=== PATIENT | male | born 1980 | race Caucasian/White ===

== ENCOUNTER 2017-01-27 05:24 | Emergency (ER) | payer OTHER ==
[~2017-01-27 05:24] MED LIST: CEPH-264 PO; CYCL10TA2 PO; HYDR-79 PO; HYDR-971 PO; KETO10TA PO
[2017-01-27 05:35] VITALS: BP 128/87
[2017-01-27] MEDS ORDERED: AZIT250T PO (05:43)
[2017-01-27] MEDS ORDERED: ALBU18HF IH (05:43)
[2017-01-27] MEDS ORDERED: PRED20TA PO (05:43)
--- NOTE | 2017-01-27 05:46 | PHYS DOC ---
General Chief Complaint: COUGH Stated Complaint: COUGH X 2 DAYS Time Seen by MD: 05:34 Source: patient, old records Exam Limitations: no limitations Problems: History of Present Illness Initial Comments Pt is 36/M to ED c/o cough. Pt states past week severe cough keeps him awake, productive yellow. No cp/sob/ fever/chills/n/v/d. No prearrival treatment, sx described as moderate to severe. Pt smokes 1.5 PPD x 20 yrs. Timing/Duration: 1 week Severity: moderate Associated Symptoms: cough Allergies: Coded Allergies: sulfamethoxazole (Verified Allergy, Intermediate, Rash, 08/24/16) trimethoprim (Verified Allergy, Intermediate, Rash, 08/24/16) tramadol (Verified Adverse Reaction, Mild, Nausea and Vomiting, 08/24/16) Past Medical History Medical History: no pertinent history Surgical History: noncontributory Social History Smoker: cigarettes Alcohol: occasionally Drugs: none Review of Systems Constitutional: denies chills, denies diaphoresis, denies fever, denies malaise Respiratory: see HPI Cardiovascular: denies chest pain, denies palpitations Gastrointestinal: denies nausea, denies vomiting Musculoskeletal: denies back pain, denies joint swelling Psychiatric/Neurological: denies headache, denies numbness, denies paresthesia Physical Exam General Appearance: no apparent distress, thin Eyes: bilateral eye EOMI, bilateral eye PERRL, bilateral eye normal inspection Ear, Nose, Throat: hearing grossly normal, normal ENT inspection, normal pharynx Neck: non-tender, supple Respiratory: chest non-tender, no respiratory distress, decreased breath sounds Cardiovascular: normal peripheral pulses, regular rate, rhythm Back: no CVA tenderness, no vertebral tenderness Extremities: non-tender, normal inspection 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 Rx: prednisone, albuterol MDI, zithromax Follow up with your doctor in 7-10 days. Return to ED with new or changing symptoms. JAVON GARCIA DO Jan 27, 2017 05:45
[2017-01-27] MEDS ORDERED: AZITHROMYCIN 250 MG TABLET. PO ONE (06:00)
[2017-01-27] MEDS ORDERED: PREDNISONE 10 MG TABLET PO ONE (06:00)
[2017-01-27] MEDS ORDERED: IPRATRPIUM/ALBUTEROL 0.5/2.5MG 3 ML NEBU. NEB ONE (06:00)
== END 2017-01-27 06:00 | disposition home or self-care (01) ==
LOC: ER 05:24
DX: J44.1 Chronic obstructive pulmonary disease with (acute) exacerbation (principal); J20.9 Acute bronchitis, unspecified; F17.210 Nicotine dependence, cigarettes, uncomplicated; Z88.1 Allergy status to other antibiotic agents; Z88.6 Allergy status to analgesic agent
CPT/HCPCS: 94640; 99283; J0456; J7512; J7620

== ENCOUNTER 2017-03-12 11:34 | Emergency (ER) | payer OTHER ==
[~2017-03-12] VITALS: Ht 175.3 cm; Wt 61.2 kg
[~2017-03-12 11:34] MED LIST changes: +ALBU18HF IH; +AZIT250T PO; +CYCL-331 PO; -CYCL10TA2 PO; +PRED20TA PO
[2017-03-12 11:40] VITALS: BP 118/77
[2017-03-12] MEDS ORDERED: PENI500T PO (12:26)
--- NOTE | 2017-03-12 12:26 | PHYS DOC ---
Past History Past Medical History: No Pertinent History Past Surgical History: Other Smoking: Cigarettes Alcohol Use: None Drug Use: None Adult General Chief Complaint Chief Complaint: DENTAL PROBLEM HPI HPI Patient is a 36-year-old male complaining of tooth pain since yesterday. The patient states he has bad teeth, he has an appointment on to have his lower teeth pulled, he will end up getting dentures he states. He has trouble getting into a dentist because there is only one dentist in the area that takes Medicaid. He states he does have an appointment for this coming though. He has a tooth that is broken off at the gumline, has been broken off for quite a while, that has been bothering him lately. He has not been on antibiotics lately. He has been taking ibuprofen without relief. Review of Systems Review of Systems Constitutional: Denies fever or chills [] Allergies Allergies Allergies Coded Allergies Type Severity Reaction Last Updated Verified sulfamethoxazole Allergy Intermediate Rash 08/24/16 Yes trimethoprim Allergy Intermediate Rash 08/24/16 Yes tramadol Adverse Reaction Mild Nausea and Vomiting 08/24/16 Yes Physical Exam Physical Exam Constitutional: Well developed, well nourished, no acute distress, non-toxic appearance. Alert, mentating normally, handling his secretions well, no difficulty with swallowing. HENT: Normocephalic, atraumatic, bilateral external ears normal, oropharynx moist, no oral exudates, multiple mandibular teeth are fractured off at the gumline. The specific area of dental pain is on the right mandible. Generalized gingivitis and mild to moderate redness and swelling of the gums in this area, but no evidence of acute abscess, no purulent drainage, no localized swelling. Nose normal. [] Eyes: conjunctiva normal, no discharge. [] Neck: Normal range of motion, no stridor. [] Skin: Warm, dry, no erythema, no rash. [] Extremities: No tenderness, no cyanosis, no clubbing, ROM intact, no edema. [] Neurologic: Alert and oriented X 3, normal motor function, normal sensory function, no focal deficits noted. [] Current Patient Data Vital Signs Vital Signs Date Time Temp Pulse Resp B/P (MAP) Pulse Ox O2 Delivery O2 Flow Rate FiO2 03/12/17 11:40 96.6 76 16 99 Room Air EKG EKG [] Radiology/Procedures Radiology/Procedures [] Course & Med Decision Making Course & Med Decision Making Pertinent Labs and Imaging studies reviewed. (See chart for details) 36-year-old male presents with dental pain. He is not allergic to penicillin. I urge the patient to see a dentist as soon as possible, advised him that a penicillin prescription at this time will only be a short-term aid and he needs definitive dental treatment. I reviewed his chart and the patient has been here many times for dental pain. I advised him ibuprofen for pain relief until he does see a dentist. I declined to give him opiates since he has been seen many times and has not followed up for dental care as advised. [] Dragon Disclaimer Dragon Disclaimer This chart was dictated in whole or in part using Voice Recognition software in a busy, high-work load, and often noisy Emergency Department environment. It may contain unintended and wholly unrecognized errors or omissions. Departure Departure: Impression: Primary Impression: Pain, dental Disposition: 01 HOME, SELF-CARE Condition: STABLE Referrals: PCP,UNKNOWN (PCP) Patient Instructions: Dental Caries Additional Instructions: As we discussed, ibuprofen 800 mg every 6-8 hours as needed for pain. You must see your dentist as planned to have this problem taken care of or your pain will not go away. Scripts Penicillin V Potassium (PENICILLIN V POTASSIUM) 500 Mg Tablet 1 TAB PO TID, #30 TAB Prov: BENNY POZO MD 03/12/17 BENNY POZO MD March 12, 2017 12:26
== END 2017-03-12 12:36 | disposition home or self-care (01) ==
LOC: ER 11:34
DX: K08.89 Other specified disorders of teeth and supporting structures (principal); F17.210 Nicotine dependence, cigarettes, uncomplicated; Z88.1 Allergy status to other antibiotic agents; Z88.6 Allergy status to analgesic agent
CPT/HCPCS: 99283

== ENCOUNTER 2017-04-21 09:05 | Emergency (ER) | payer OTHER ==
[~2017-04-21] VITALS: Ht 175.3 cm; Wt 61.2 kg
[~2017-04-21 09:05] MED LIST changes: +PENI500T PO
[2017-04-21 09:15] VITALS: BP 122/84
--- NOTE | 2017-04-21 09:23 | PHYS DOC ---
General Chief Complaint: DENTAL PROBLEM Stated Complaint: DENTAL PAIN Time Seen by MD: 09:08 Source: patient, old records Exam Limitations: no limitations Problems: History of Present Illness Initial Comments Patient is a 36-year-old male comes to the ED complaining of dental pain. Patient states that he had teeth pulled last week and is now complaining of right lower premolar pain. He says his dentist doesn't get into the office until 1:30 PM today and he feels he cannot wait until then. He denies fever chills sweats or myalgias he hasn't had any headache neck stiffness chest pain or difficulty breathing. Patient has extensive emergency department history at this facility with multiple visits for back and dental pain. He was seen at this facility most recently March 12 and at that time stated he had an appointment that following for tooth extraction. He was prescribed penicillin on that day and advised to take ibuprofen as no narcotic pain medications would be given for this due to prior noncompliance and drug- seeking. No pre-arrival treatment patient continues to smoke cigarettes. Timing/Duration: other Severity: severe Location: mouth Prearrival Treatment: other (this Danish 2 but otherwise a little febrile) Modifying Factors: improves with other Associated Symptoms: tooth pain Allergies: Coded Allergies: sulfamethoxazole (Verified Allergy, Intermediate, Rash, 08/24/16) trimethoprim (Verified Allergy, Intermediate, Rash, 08/24/16) tramadol (Verified Adverse Reaction, Mild, Nausea and Vomiting, 08/24/16) Past Medical History Medical History: other (noncompliance with medical care, drug seeking, dental caries, back pain) Surgical History: noncontributory Social History Smoker: cigarettes Alcohol: none Drugs: none Constitutional: denies chills, denies fever, denies malaise Ears: denies dizziness, denies pain, denies tinnitus Nose: denies clots, denies congestion, denies epistaxis Mouth: see HPI Throat: denies pain, denies swelling, denies discharge, denies neck stiffness Respiratory: denies cough, denies shortness of breath, denies wheezing Cardiovascular: denies chest pain, denies palpitations, denies syncope Gastrointestinal: denies diarrhea, denies nausea, denies vomiting Musculoskeletal: denies back pain, denies joint swelling, denies neck pain Physical Exam General Appearance: no apparent distress, thin Eyes: bilateral eye normal inspection, bilateral eye PERRL, bilateral eye EOMI Nose: normal inspection Mouth/Throat: other (very poor oral hygiene and dentition, multiple missing teeth with healing recent extraction sites bilateral premolars there is no evidence of infection, no swelling purulence or discoloration and there is no bony tenderness there is apparent soft tissue tenderness) Neck: supple, trachea midline Cardiovascular/Respiratory: normal breath sounds, no respiratory distress 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 He was again advised to follow-up with his dentist and to discontinue tobacco abuse. Departure Time of Disposition: :21 Disposition: HOME, SELF-CARE Diagnosis: chronic dental pain, tobaccoism Condition: GOOD Patient Instructions: Dental Pain, [id number] Additional Instructions: Stop smoking, significant medical assistance if necessary. Aggressive hydration with Gatorade or water. The Toradol you received in the emergency department will take approximately one hour to take full affect. It should last for 6 hours giving you plenty of time to contact your dentist after he gets into the office at 1:30 PM. As discussed no narcotic pain medications will be prescribed from the emergency department for this condition. Follow-up with your dentist today at 1:30 PM for further evaluation and treatment. Return to the ED with new or changing symptoms. JAVON GARCIA DO Apr 21, 2017 09:23
[2017-04-21] MEDS ORDERED: KETOROLAC TROMETHAMINE 10 MG TABLET PO ONE (09:50)
== END 2017-04-21 09:35 | disposition home or self-care (01) ==
LOC: ER 09:05
DX: G89.29 Other chronic pain (principal); K08.89 Other specified disorders of teeth and supporting structures; F17.210 Nicotine dependence, cigarettes, uncomplicated; Z91.19 Patient's noncompliance with other medical treatment and regimen; Z76.5 Malingerer [conscious simulation]; Z88.1 Allergy status to other antibiotic agents; Z88.6 Allergy status to analgesic agent
CPT/HCPCS: 99282

== ENCOUNTER 2017-04-28 19:25 | Emergency (ER) | payer OTHER ==
[~2017-04-28] VITALS: Ht 175.3 cm; Wt 61.2 kg
[2017-04-28 19:25] VITALS: BP 111/88
[2017-04-28] MEDS ORDERED: DIPH1TAB PO (19:59)
[2017-04-28] MEDS ORDERED: METH-38 PO (19:59)
[2017-04-28] MEDS ORDERED: NAPR275T59 PO (19:59)
--- NOTE | 2017-04-28 20:02 | PHYS DOC ---
Past History Past Medical History: No Pertinent History Additional Past Medical Histor: chronic lower back pain drug-seeking behavior Past Surgical History: No Surgical History, Other Smoking: Cigarettes Alcohol Use: None Drug Use: None Adult General Chief Complaint Chief Complaint: BACK PAIN OR INJURY [facility] This is a pleasant 36-year-old male with a history chronic lower back pain and chronic dental issues who comes or emergent department on a frequent basis looking for pain control. 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 His doctors put him on gabapentin and Lyrica recently and is developed loose diarrhea. He denies any UTI symptoms, hematuria , bowel or bladder incontinence, night sweats, weight loss, direct trauma to his back or change in the type of pain that he has. He is and does attend a pain management clinic for which he is under very strict pain management control. He is not supposed to obtain medications from any other sources other than his primary pain management doctor. He has been spoken to about possible need for an epidural injection to treat his back pain. He is undergoing physical therapy next week and has an MRI recently completed of his lumbar spine. He describes no weakness in his lower legs, describes no numbness and tingling. Patient denies any change in his symptoms. He is formerly worried about the diarrhea caused by what he believes to be medication intolerance of the Lyrica. He admits that he normally takes [place] as been not on any recently. Some of the symptoms he does describe described as possible withdrawal symptoms. Review of Systems Review of Systems Constitutional: Denies fever or chills [] Eyes: Denies change in visual acuity, redness, or eye pain [] HENT: Denies nasal congestion or sore throat [] Respiratory: Denies cough or shortness of breath [] Cardiovascular: No additional information not addressed in HPI [] GI: Denies abdominal pain, nausea, vomiting, he does describe some loose diarrheal stool over the last 2 days. : Denies dysuria or hematuria [] Musculoskeletal: He describes lower back pain is chronic in nature mostly on the left greater than right. Integument: Denies rash or skin lesions [] Neurologic: Denies headache, focal weakness or sensory changes [] Endocrine: Denies polyuria or polydipsia [] Allergies Allergies Allergies Coded Allergies Type Severity Reaction Last Updated Verified sulfamethoxazole Allergy Intermediate Rash 08/24/16 Yes trimethoprim Allergy Intermediate Rash 08/24/16 Yes tramadol Adverse Reaction Mild Nausea and Vomiting 08/24/16 Yes Physical Exam Physical Exam Vital signs unremarkable Constitutional: He is thin relative cachectic. He has clear temporal wasting although he is in no acute distress to he is uncomfortable when he rotates the right or left. HENT: Normocephalic, atraumatic, bilateral external ears normal, his nose dry mucous membranes and poor oral dentition with significant decay of the frontal incisors. [] Neck: Normal range of motion, no tenderness, supple, no stridor. [] Cardiovascular:Heart rate regular rhythm, no murmur [] Lungs & Thorax: Bilateral breath sounds clear to auscultation [] Skin: Warm, dry, no erythema, no rash. [] Back: he clearly has muscular skeletal spasm of the left erector spinae muscles with no midline tenderness to palpation. Negative straight straight leg raise to 45 without issue. He has normal extension and flexion both at the hip and the knee with 5 out of 5 strength against gravity. Extremities: No tenderness, no cyanosis, no clubbing, ROM intact, no edema. [] Neurologic: Alert and oriented X 3, normal motor function, normal sensory function, no focal deficits noted. 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 Psychologic: Patient's judgment is normal but he does spend a normal amount of time talking about chronic pain issues. EKG EKG [] Radiology/Procedures Radiology/Procedures [] Course & Med Decision Making Course & Med Decision Making Pertinent Labs and Imaging studies reviewed. (See chart for details) and with chronic pain issues with chronic back pain exacerbated by rotational motion with working. There are no new symptoms, there are no night sweats, no recent trauma, no UTI symptoms, no neurologic deficits noted on physical exam. Patient is under chronic pain management at this time we discussed limitations of treatment in the ER given his relationship with pain management clinic as well as the fact that he drove his car today. We will offer him an increased dose of Robaxin help with his muscle spasm and anti-inflammatory like long-term Naprosyn and close follow-up with his primary care doctor. I will also given some relief with her withdrawal symptoms like Lomotil for his diarrhea. Patient's medical screening exam and showed no concerning presentation for cauda equina, renal disease, acute abdominal aneurysm, trauma, tumor, UTI, localized infection like epidural abscess. Impression, chronic lower back pain, diarrhea possibly from withdrawal symptoms. Disposition: PCP follow-up with referral back to the pain management clinic. Patient with a increased dose of Robaxin and Naprosyn. Was Imodium [] Dragon Disclaimer Dragon Disclaimer This chart was dictated in whole or in part using Voice Recognition software in a busy, high-work load, and often noisy Emergency Department environment. It may contain unintended and wholly unrecognized errors or omissions. Departure Departure: Impression: Primary Impression: Chronic back pain Additional Impression: Diarrhea Referrals: PCP,UNKNOWN (PCP) Patient Instructions: Back Pain, Adult, Chronic Back Pain, Chronic Pain Management Additional Instructions: This follow-up your primary care doctor and your pain management physician to adjust her medications. The emergency department is a place to address acute issues chronic pain management should be done better by professional to do this all the time. I'm afraid that with chronic pain management use the body will become addicted. I'm concerned with this patient's presentation that they may be addicted to narcotic medications. Their behavior could be described as drug seeking in nature and I'm concerned that if I do not explain to them my concerns and we have a discussion about how to treat this in the future we will continue to see them using these medications and possibly dangerous manners. We talked about over utilization that the medications associated with narcotics to include acetaminophen when taking large doses can cause liver injury that is permanent nature. We discussed a treatment plan and need for follow-up with a cork painter and grader to talk about alternatives to narcotic medications. We also talked about possible psychiatric intervention to help him cope with her chronic pain condition. We also discussed possible social work involvement or addiction treatment involvement to help address the possible withdrawal symptoms that may be experiencing which is causing the further use narcotics in this way. I will take the time to provide them addiction clinic information in the follow- up if they choose to accept my help. Scripts Methocarbamol (ROBAXIN-750) 750 Mg Tablet 1 TAB PO BID, #20 TAB Prov: BULMARO WOO MD 04/28/17 Naproxen Sodium (NAPROXEN SODIUM) 275 Mg Tablet 275 MG PO BID for 7 Days, #14 TAB Prov: BULMARO WOO MD 04/28/17 Diphenoxylate Hcl/Atropine (LOMOTIL TABLET) 1 Each Tablet 1 TAB PO QID, #20 TAB Prov: BULMARO WOO MD 04/28/17 Problem Qualifiers BULMARO WOO MD Apr 28, 2017 20:02
[2017-04-29] MEDS ORDERED: NAPR275T59 PO (22:07)
[2017-04-29] MEDS ORDERED: PENI500T PO (22:07)
== END 2017-04-28 20:10 | disposition home or self-care (01) ==
LOC: ER 19:25
DX: G89.29 Other chronic pain (principal); M54.5 Low back pain; R19.7 Diarrhea, unspecified; F17.210 Nicotine dependence, cigarettes, uncomplicated; Z88.1 Allergy status to other antibiotic agents; Z88.6 Allergy status to analgesic agent
CPT/HCPCS: 99283

== ENCOUNTER 2017-04-29 21:42 | Emergency (ER) | payer OTHER ==
[~2017-04-29] VITALS: Ht 175.3 cm; Wt 61.2 kg
[~2017-04-29 21:42] MED LIST changes: +DIPH1TAB PO; +METH-38 PO; +NAPR275T59 PO
[2017-04-29 21:58] VITALS: BP 143/83
[2017-04-29] MEDS ORDERED: PENI500T PO (22:07)
[2017-04-29] MEDS ORDERED: NAPR275T59 PO (22:07)
--- NOTE | 2017-04-29 22:08 | PHYS DOC ---
Past History Past Medical History: No Pertinent History, Other Additional Past Medical Histor: chronic lower back pain drug-seeking behavior Past Surgical History: No Surgical History, Other Smoking: Cigarettes Alcohol Use: None Drug Use: None Adult General Chief Complaint Chief Complaint: DENTAL PROBLEM [facility] HPI This patient is a pleasant 36-year-old male with a history of chronic dental pain dental problems lower back pain and drug-seeking behavior who returns to the emergency. Again on his now 6 visit for the same complaint of dental pain. Today is issue is that he was seen at a dental office and had a lower tooth extracted from his lower right jaw. Now he is having increased pain. He has not provided any after care instructions, no syringe no oral swishes and spits no evidence of any kind of antibiotics no pain medications. The pain is worse with chewing. He denies any fevers, chills, difficulty opening his mouth. He denies any sore throat, change in voice or other complaints. Review of Systems Review of Systems Constitutional: Denies fever or chills [] Eyes: Denies change in visual acuity, redness, or eye pain [] HENT: Denies nasal congestion or sore throat [] Respiratory: Denies cough or shortness of breath [] Cardiovascular: No additional information not addressed in HPI [] GI: Denies abdominal pain, nausea, vomiting, bloody stools or diarrhea [] : Denies dysuria or hematuria [] Musculoskeletal: Denies back pain or joint pain [] Integument: Denies rash or skin lesions [] Neurologic: Denies headache, focal weakness or sensory changes [] Allergies Allergies Allergies Coded Allergies Type Severity Reaction Last Updated Verified sulfamethoxazole Allergy Intermediate Rash 08/24/16 Yes trimethoprim Allergy Intermediate Rash 08/24/16 Yes tramadol Adverse Reaction Mild Nausea and Vomiting 08/24/16 Yes Physical Exam Physical Exam Vital signs stable Constitutional: Well developed, patient is thin and cachectic with muscle wasting at the temples. HENT: Normocephalic, atraumatic, bilateral external ears normal, oropharynx moist, no oral exudates, nose normal. He has poor dentition along the lower left gingival line he is had tooth #29 and 30 removed there is mild soft tissue swelling with a clot noted within the socket. There is no obvious foreign body noted no obvious bleeding. Eyes: PERRLA, EOMI, conjunctiva normal, no discharge. [] Neck: Normal range of motion, no tenderness, supple, no stridor. [] Skin: Warm, dry, no erythema, no rash. [] Neurologic: Alert and oriented X 3, normal speech. Psychologic: Affect normal, judgement normal, mood normal. [] EKG EKG [] Radiology/Procedures Radiology/Procedures [] Course & Med Decision Making Course & Med Decision Making Pertinent Labs and Imaging studies reviewed. (See chart for details) patient with postoperative dental pain. With no obvious signs of dental infection patient has some mild gingival inflammation secondary to tooth manipulation and removal. Patient will have his tooth socket irrigated out and a platelet placed over it patient be provided antibiotics and appropriate follow-up with the dentist on Tuesday [id number] Tylenol or Motrin for his dental pain. I would advise that he has pain postoperatively like this that he is discussed with his dentist about more aggressive pain management. Given his higher history of drug-seeking behavior I'm reluctant to supply him with any kind of narcotic. Impression: Post dental extraction pain control. gingival inflammation doubt alveolar ostitis Patient will be placed on penicillin, Tylenol Motrin. [] Dragon Disclaimer Dragon Disclaimer This chart was dictated in whole or in part using Voice Recognition software in a busy, high-work load, and often noisy Emergency Department environment. It may contain unintended and wholly unrecognized errors or omissions. Departure Departure: Impression: Primary Impression: Chronic dental pain Additional Impression: Pain, dental Disposition: HOME, SELF-CARE Condition: STABLE Referrals: PRABHAKAR JENKINS MD (PCP) Patient Instructions: Dental Extraction, Care After, Dental Pain Additional Instructions: Please return for any fever greater than 102.2 despite treatment or if you have any increased swelling of your face or difficulty swallowing change in voice. I would advise a follow-up with your dentist on Tuesday for repeat evaluation of year post extraction site. Scripts Penicillin V Potassium (PENICILLIN V POTASSIUM) 500 Mg Tablet 1 TAB PO QID, #40 TAB Prov: BULMARO WOO MD 04/29/17 Naproxen Sodium (NAPROXEN SODIUM) 275 Mg Tablet 275 MG PO BID for 7 Days, #14 TAB Prov: BULMARO WOO MD 04/29/17 Problem Qualifiers BULMARO WOO MD Apr 29, 2017 22:07
== END 2017-04-29 22:16 | disposition home or self-care (01) ==
LOC: ER 21:42
DX: G89.29 Other chronic pain (principal); K08.89 Other specified disorders of teeth and supporting structures; M54.5 Low back pain; F17.210 Nicotine dependence, cigarettes, uncomplicated; Z76.5 Malingerer [conscious simulation]; Z98.818 Other dental procedure status; Z88.1 Allergy status to other antibiotic agents; Z88.6 Allergy status to analgesic agent
CPT/HCPCS: 99283

== ENCOUNTER 2017-05-08 23:45 | Emergency (ER) | payer OTHER ==
[~2017-05-08] VITALS: Ht 175.3 cm; Wt 61.2 kg
[2017-05-08 23:45] VITALS: BP 132/87
--- NOTE | 2017-05-09 00:05 | PHYS DOC ---
General Chief Complaint: ABSCESS Stated Complaint: FACIAL ABSCESS Time Seen by MD: 23:47 Source: patient, old records Exam Limitations: no limitations Problems: History of Present Illness Initial Comments Patient is a 36-year-old male who comes to the ED complaining of facial pain. Patient states that he was seen yesterday in the emergency department at [facility] for the same symptoms. He reports that he was diagnosed with a MRSA nasal abscess and was prescribed clindamycin, Bactroban ointment, and hydrocodone. Patient states that he has taken all of the hydrocodone and it has not helped his pain. He complains of severe nasal pain and is requesting pain medications. Patient denies fever chills headache cough difficulty breathing neck stiffness focal weakness or nausea and vomiting. The patient does not appear to be in severe discomfort, his temperature is 98.1 and his resting heart rate is 93 bpm. Patient has numerous ED visits for narcotic seeking at this facility alone. He has been advised in the past that narcotic medications will be prescribed only as emergently necessary. Timing/Duration: yesterday Severity: severe Location: nose Prearrival Treatment: prescription meds Associated Symptoms: other Allergies: Coded Allergies: sulfamethoxazole (Verified Allergy, Intermediate, Rash, 08/24/16) trimethoprim (Verified Allergy, Intermediate, Rash, 08/24/16) tramadol (Verified Adverse Reaction, Mild, Nausea and Vomiting, 08/24/16) Past Medical History Medical History: other (drug seeking behavior, chronic dental pain, chronic back pain) Surgical History: noncontributory Social History Smoker: cigarettes Alcohol: none Drugs: none Constitutional: denies chills, denies diaphoresis, denies fever, denies malaise , denies weakness Eyes: denies blindness, denies blurred vision, denies decreased acuity Ears: denies dizziness, denies pain, denies tinnitus Nose: see HPI Mouth: see HPI Throat: denies pain, denies swelling, denies neck stiffness Respiratory: denies cough, denies shortness of breath, denies wheezing Cardiovascular: denies chest pain, denies palpitations, denies syncope Gastrointestinal: denies abdominal pain, denies nausea, denies vomiting Musculoskeletal: see HPI Neurological: denies headache, denies numbness, denies paresthesia Physical Exam General Appearance: no apparent distress (unkempt) Eyes: bilateral eye PERRL, bilateral eye EOMI, bilateral eye other ( conjunctivae injected bilaterally no discharge or swelling) Nose: other (0.2mm tender macular erythematous lesion at medial aspect right nare, mild distal nasal erythema no skin breaks or discharge. 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 I had just notified the patient that based upon his vital signs, physical exam, as well as his long standing drug seeking behavior history at this facility no narcotics indicated. I advised him that we would try topical lidocaine and toradol, pt expressed agreement. 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 This behavior further reinforces previously diagnosed opiate seeking behavior. Departure Time of Disposition: 00:18 Disposition: 07 AGAINST MEDICAL ADVICE Diagnosis: Drug seeking, tobaccoism, nasal cellulitis Condition: GOOD Patient Instructions: MRSA Overview, Opiate Dependence Additional Instructions: Stop smoking, seek medical assistance if necessary. Skin wound and infection healing is impaired by smoking which may lead to more discomfort. Continue current clindamycin and bactroban. No narcotic medications are indicated at this time. Topical lidocaine applied/dispensed in ED. Reapply prn. Follow up with your doctor in 1-2 days. Return to ED with emergent condition. note: no meds administered in ED pt left AMA without opportunity to give informed consent. JAVON GARCIA DO May 09, 2017 00:05
[2017-05-09] MEDS ORDERED: KETOROLAC 60 MG/2 ML VIAL. IM ONE (00:30)
[2017-05-09] MEDS ORDERED: LIDOCAINE 2% JELLY 10ML IN APPLICATOR. MM ONE (00:30)
== END 2017-05-09 00:22 | disposition left against medical advice (07) ==
LOC: ER 23:45
DX: J34.0 Abscess, furuncle and carbuncle of nose (principal); Z76.5 Malingerer [conscious simulation]; G89.29 Other chronic pain; F17.210 Nicotine dependence, cigarettes, uncomplicated; Z88.1 Allergy status to other antibiotic agents; Z88.6 Allergy status to analgesic agent
CPT/HCPCS: 99281

== ENCOUNTER 2017-06-17 22:52 | Emergency (ER) | payer OTHER ==
[~2017-06-17] VITALS: Ht 175.3 cm; Wt 55.3 kg
[2017-06-17 22:55] VITALS: BP 137/91
--- NOTE | 2017-06-17 23:53 | PHYS DOC ---
General Chief Complaint: HIP PAIN Stated Complaint: RT HIP PAIN Time Seen by MD: 23:03 Source: patient, old records Exam Limitations: no limitations Problems: History of Present Illness Initial Comments Pt is 37/M to ED c/o right hip pain. Pt states earlier today he was playing football with neighbor kids/adults, says he was tackled falling to his right hip. Since that time pt states he's had severe 10/10 right hip pain. Pt points to right glute/lateral hip in general, denies any midline or low back pain/leg weakness/bowel or bladder sx/saddle anesthesia. Pt has had numerous ED visits for back and dental pain complaints at this facility. He continues to smoke cigarettes but "is cutting down." Now follows with Dr Harris, says he's been referred for PT. Occurred: this afternoon Severity: severe Injuries/Pain Location: pelvis Context: other Loss of Consciousness: no loss of consciousness Modifying Factors: worse with jarring, worse with movement, improves with rest Associated Symptoms: other Allergies: Coded Allergies: sulfamethoxazole (Verified Allergy, Intermediate, Rash, 08/24/16) trimethoprim (Verified Allergy, Intermediate, Rash, 08/24/16) tramadol (Verified Adverse Reaction, Mild, Nausea and Vomiting, 08/24/16) Past Medical History Medical History: other (chronic dental pain, chronic back pain, extensive dental caries, drug seeking behavior) Surgical History: noncontributory Social History Smoker: cigarettes Alcohol: none Drugs: none Review of Systems Constitutional: denies chills, denies diaphoresis, denies fever, denies malaise Eyes: denies blindness, denies blurred vision, denies pain, denies photophobia Ears, Nose, Mouth, Throat: denies ear pain, denies ear discharge, denies nose discharge, denies epistaxis, denies mouth swelling Respiratory: denies cough, denies shortness of breath, denies wheezing Cardiovascular: denies chest pain, denies palpitations, denies syncope Gastrointestinal: denies diarrhea, denies nausea, denies vomiting Genitourinary: denies frequency, denies hematuria, denies pain Musculoskeletal: see HPI, denies back pain, denies neck pain Psychiatric/Neurological: denies headache, denies numbness, denies paresthesia , denies weakness Physical Exam General Appearance: WD/WN, no apparent distress Head: no evidence of injury (NCAT, neg cordero/raccoon eyes) Eyes: bilateral eye normal inspection, bilateral eye PERRL, bilateral eye EOMI Ears, Nose, Mouth, Throat: hearing grossly normal, no evidence of ENT injury ( no ear/nose discharge no fluid behind TMs b/l. Very poor dentition noted) Neck: non-tender, full range of motion Cardiovascular/Respiratory: normal peripheral pulses, normal breath sounds Gastrointestinal: non tender, soft Back: no CVA tenderness, no vertebral tenderness Extremities: other (diffuse R gluteal TTP, no swell/ecchymoses/abrasion or other evidence trauma. 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 No evidence severe injury on physical exam. A tylenol #3 start pack dispensed to pt and he was advised no further narcotic pain medications would be given for this injury. He was advised to stop smoking and follow up Tuesday morning with Dr Harris. He expressed agreement/understanding with treatment plan. Departure Time of Disposition: 23:51 Disposition: 01 HOME, SELF-CARE Diagnosis: right hip pain, fall, chronic pain, tobaccoism Condition: GOOD Patient Instructions: Chronic Back Pain, RICE - Routine Care for Injuries, Easy -to-Read, Smoking Cessation Additional Instructions: RICE, see handout. Stop smoking, seek medical assistance if necessary. OTC ibuprofen as needed. A tylenol #3 start pack was dispensed in ED. Take 1 every 6 hours with food for severe pain. Follow up with Dr Harris Tuesday for recheck. Return to ED with new or changing symptoms. JAVON STORM DO Jun 17, 2017 23:53
[2017-06-17] MEDS ORDERED: ACETAMINOPHEN/CODEINE 300/30MG 4TABLET STARTPACK. PO ONE (23:57)
[2017-06-18] MEDS ORDERED: ACETAMINOPHEN/CODEINE 300/30MG 4TABLET STARTPACK. PO ONE
--- NOTE | 2017-06-18 08:11 | RAD ---
HIP RIGHT 2V WITH PELVIS History: Fall today, right hip pain Comparison: None Findings:Single view of the pelvis and 2 views of the right hip are submitted. No acute fracture or dislocation is identified. Impression: 1.No acute abnormality is identified.
== END 2017-06-17 23:58 | disposition home or self-care (01) ==
LOC: ER 22:52
DX: M25.551 Pain in right hip (principal); G89.29 Other chronic pain; F17.210 Nicotine dependence, cigarettes, uncomplicated; Z88.1 Allergy status to other antibiotic agents; Z88.6 Allergy status to analgesic agent; W19.XXXA Unspecified fall, initial encounter; Y93.61 Activity, american tackle football; Y99.8 Other external cause status; Y92.89 Other specified places as the place of occurrence of the external cause
CPT/HCPCS: 73502; 99284

== ENCOUNTER 2017-07-07 12:06 | Emergency (ER) | payer OTHER ==
[~2017-07-07] VITALS: Ht 162.6 cm; Wt 63.5 kg
[2017-07-07 12:06] VITALS: BP 112/85
[2017-07-07] MEDS ORDERED: AMOX500C PO (12:38)
[2017-07-07] MEDS ORDERED: IBUP800T19 PO (12:38)
--- NOTE | 2017-07-07 12:40 | PHYS DOC ---
General Chief Complaint: DENTAL PROBLEM Stated Complaint: DENTAL PAIN Time Seen by MD: 12:07 Source: patient, old records Exam Limitations: no limitations Problems: History of Present Illness Initial Comments Patient is a 37-year-old male well known to this facility for his numerous ED visits for chronic issues and drug-seeking behavior. Patient states that he broke a yesterday and is in severe pain. He says he followed up at his dentist however while there was notified you $25 and therefore wasn't able to be seen. Patient follows with Dr. Harris who has walk- in hours patient states he didn't think about following up there. He is complaining of severe left lower dental pain. Patient has prior record of numerous ED visits for dental pain and has been told by our ED director and subsequent ED physicians with whom he is followed up that no narcotic medications would be prescribed except for being emergently. He describes as dental pain as severe throbbing no exacerbating or relieving factors. Patient is a heavy smoker. ED vital signs are stable. Timing/Duration: yesterday Severity: severe Location: dental Prearrival Treatment: no prearrival treatment Modifying Factors: improves with other Associated Symptoms: tooth pain Allergies: Coded Allergies: sulfamethoxazole (Verified Allergy, Intermediate, Rash, 08/24/16) trimethoprim (Verified Allergy, Intermediate, Rash, 08/24/16) tramadol (Verified Adverse Reaction, Mild, Nausea and Vomiting, 08/24/16) Past Medical History Medical History: other (chronic dental pain, dental caries, chronic back pain, drug-seeking behavior) Surgical History: noncontributory Social History Smoker: cigarettes Alcohol: none Drugs: none Constitutional: denies chills, denies diaphoresis, denies fever, denies malaise Ears: denies dizziness, denies pain, denies tinnitus Nose: denies clots, denies congestion, denies epistaxis Mouth: see HPI Throat: denies pain, denies discharge, denies neck stiffness Respiratory: denies cough, denies shortness of breath, denies wheezing Cardiovascular: denies chest pain, denies palpitations, denies syncope Gastrointestinal: denies abdominal pain, denies nausea, denies vomiting Musculoskeletal: denies back pain, denies joint swelling, denies neck pain Neurological: denies headache, denies numbness, denies paresthesia Physical Exam General Appearance: no apparent distress Eyes: bilateral eye normal inspection, bilateral eye PERRL, bilateral eye EOMI Nose: normal inspection Mouth/Throat: other (severe dental caries globally with full missing teeth, no acute swelling erythema bleeding or ecchymosis or other acute finding at the left lower teeth where the patient's chief complaint is. 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 I discussed opiate medications and the patient understands none will be prescribed. I discussed antibiotics and close dentist follow-up. I discussed smoking cessation and recommended the patient discontinue. He expressed understanding of the treatment plan. Departure Time of Disposition: 12:38 Disposition: 01 HOME, SELF-CARE Diagnosis: chronic dental pain, dental caries, tobaccoism Condition: STABLE Patient Instructions: Dental Caries, Smoking, You Can Quit, [id number] Additional Instructions: Drink plenty of fluids to avoid dehydration. Stop smoking, seek medical assistance if necessary. Prescription: Ibuprofen 800 mg, amoxicillin. If necessary you may follow-up with your PCP Dr Harris tomorrow morning for walk-in appointment. Return to ED with new emergency. JAVON GARCIA DO Jul 07, 2017 12:40
[2017-07-07] MEDS ORDERED: AMOXICILLIN 250 MG CAPSULE PO ONE (13:00)
[2017-07-07] MEDS ORDERED: IBUPROFEN 600 MG TABLET. PO ONE (13:00)
== END 2017-07-07 13:00 | disposition home or self-care (01) ==
LOC: ER 12:06
DX: G89.29 Other chronic pain (principal); K02.9 Dental caries, unspecified; F17.210 Nicotine dependence, cigarettes, uncomplicated; Z88.1 Allergy status to other antibiotic agents; Z88.6 Allergy status to analgesic agent
CPT/HCPCS: 99283

== ENCOUNTER 2017-07-10 15:11 | Emergency (ER) | payer OTHER ==
[~2017-07-10 15:11] MED LIST changes: +AMOX500C PO; +IBUP800T19 PO
[2017-07-10 15:15] VITALS: BP 129/80
--- NOTE | 2017-07-10 16:44 | PHYS DOC ---
General Chief Complaint: BACK PAIN OR INJURY Stated Complaint: BACK PAIN Time Seen by MD: 15:20 Source: patient, old records Exam Limitations: no limitations Problems: History of Present Illness Initial Comments Patient is a 37-year-old male who comes complaining of back pain. Patient is well known to this department and to me, he complains of chronic back pain and states he was helping a friend move earlier today and pulled a muscle in his back. He complains of severe pain in his right upper and lower back. No midline or bony pain, no leg weakness no saddle anesthesia and no incontinence or bowel or bladder symptoms. His home meds and [id number] medications are not helping. Patient has numerous prior ED visits for chronic back and dental pain., He was in fact seen by me here 3 days ago for chronic dental pain. He has been advised by multiple providers including ED director that he would no longer receive narcotic pain medications from this emergency department and had a follow-up with his pain management and primary care doctors. ED vital signs are stable patient continues to smoke cigarettes. He repeatedly requests pain medications however refuses NSAIDs and Toradol stating only opiates will help. I asked him why someone with chronic back pain complaints would help someone move their residence for which he had no answer. Timing/Duration: 4-6 hours Severity: severe Modifying Factors: worse with movement, improves with rest Associated Symptoms: other Allergies: Coded Allergies: sulfamethoxazole (Verified Allergy, Intermediate, Rash, 08/24/16) trimethoprim (Verified Allergy, Intermediate, Rash, 08/24/16) tramadol (Verified Adverse Reaction, Mild, Nausea and Vomiting, 08/24/16) Past Medical History Medical History: other (opiate dependence, drug-seeking behavior, chronic back pain, chronic dental pain, extensive dental caries) Surgical History: noncontributory Social History Smoker: cigarettes Alcohol: none Drugs: other (opiates) Review of Systems Constitutional: denies chills, denies fever Respiratory: denies cough, denies shortness of breath Cardiovascular: denies chest pain, denies palpitations Gastrointestinal: denies nausea, denies vomiting Genitourinary: denies dysuria, denies frequency, denies hematuria Musculoskeletal: back pain, denies joint swelling, muscle stiffness, denies neck pain Psychiatric/Neurological: denies headache, denies numbness, denies paresthesia , denies seizure, denies weakness Physical Exam General Appearance: no apparent distress, thin Ear, Nose, Throat: hearing grossly normal, normal ENT inspection Neck: non-tender, supple Respiratory: normal breath sounds, no respiratory distress Cardiovascular: normal peripheral pulses, regular rate, rhythm Gastrointestinal: non tender, soft Back: normal inspection, no CVA tenderness, no vertebral tenderness Extremities: normal range of motion, non-tender 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 I discussed the treatment plan patient expressed understanding and was discharged in stable condition. He was observed to ambulate without a limp and did not move as if he were in any discomfort. Departure Time of Disposition: 16:42 Disposition: 01 HOME, SELF-CARE Diagnosis: chronic back pain, thoracic strain, opiate depende Condition: GOOD Patient Instructions: Chronic Pain Management, Opiate Dependence, Smoking Hazards, Thoracic Strain Additional Instructions: Activity as tolerated. Stop smoking seek medical assistance if necessary. Continue current medications. Drink fluids to avoid dehydration. Continue to use a heating pad followed by gentle stretching. Prescription: Cyclobenzaprine, Naprosyn Follow-up with your doctor this week for recheck as needed. Return to ED with new or changing symptoms. JAVON GARCIA DO Jul 10, 2017 16:43
[2017-07-10] MEDS ORDERED: CYCL-331 PO (16:45)
[2017-07-10] MEDS ORDERED: NAPR-677 PO (16:45)
== END 2017-07-10 17:00 | disposition home or self-care (01) ==
LOC: ER 15:11
DX: S29.012A Strain of muscle and tendon of back wall of thorax, initial encounter (principal); G89.29 Other chronic pain; M54.5 Low back pain; F11.20 Opioid dependence, uncomplicated; F17.210 Nicotine dependence, cigarettes, uncomplicated; Z88.2 Allergy status to sulfonamides; Z88.1 Allergy status to other antibiotic agents; Z88.5 Allergy status to narcotic agent; X58.XXXA Exposure to other specified factors, initial encounter; Y93.89 Activity, other specified; Y92.89 Other specified places as the place of occurrence of the external cause; Y99.8 Other external cause status
CPT/HCPCS: 99283

== ENCOUNTER 2017-07-13 09:45 | Emergency (ER) | payer OTHER ==
[~2017-07-13] VITALS: Ht 175.3 cm; Wt 61.2 kg
[~2017-07-13 09:45] MED LIST changes: +NAPR-677 PO
[2017-07-13 10:03] VITALS: BP 113/71
--- NOTE | 2017-07-13 10:11 | PHYS DOC ---
Past History Past Medical History: Other Additional Past Medical Histor: chronic lower back pain drug-seeking behavior Past Surgical History: Other Smoking: Cigarettes Alcohol Use: None Drug Use: None Adult General Chief Complaint Chief Complaint: DENTAL PROBLEM HPI HPI Patient is a 37 year old M who presents with dental pain after having 2 teeth pulled 4 days ago. He feels that his swelling is decreasing and he has no foul- smelling or tasting discharge from the site his teeth were extracted. He has had no fever sweats or chills. He was given a prescription for pain medications which she has used all of at this time. He contacted his dentist this morning who recommended that he come to the dental clinic for further management. Alfredo stated that he did not have enough gas money to make it to the dentist office which is why he was seen in the emergency room. Review of Systems Review of Systems Constitutional: Denies fever or chills [] Eyes: Denies change in visual acuity, redness, or eye pain [] HENT: Denies nasal congestion or sore throat [] Respiratory: Denies cough or shortness of breath [] Cardiovascular: No additional information not addressed in HPI [] GI: Denies abdominal pain, nausea, vomiting, bloody stools or diarrhea [] : Denies dysuria or hematuria [] Musculoskeletal: Denies back pain or joint pain [] Integument: Denies rash or skin lesions [] Neurologic: Denies headache, focal weakness or sensory changes [] Endocrine: Denies polyuria or polydipsia [] Family History Family History Noncontributory Current Medications Current Medications Medications reviewed Allergies Allergies Allergies Coded Allergies Type Severity Reaction Last Updated Verified sulfamethoxazole Allergy Intermediate Rash 08/24/16 Yes trimethoprim Allergy Intermediate Rash 08/24/16 Yes tramadol Adverse Reaction Mild Nausea and Vomiting 08/24/16 Yes Physical Exam Physical Exam Constitutional: Well developed, well nourished, no acute distress, non-toxic appearance. [] HENT: Normocephalic, atraumatic, lower left tooth sites of tooth extraction. Minimal erythema noted around the gums without drainage Eyes: PERRLA, EOMI, conjunctiva normal, no discharge. [] Cardiovascular:Heart rate regular rhythm, no murmur [] Lungs & Thorax: Bilateral breath sounds clear to auscultation [] Abdomen: Bowel sounds normal, soft, no tenderness, no masses, no pulsatile masses. [] Skin: Warm, dry, no erythema, no rash. [] Back: No tenderness, no CVA tenderness. [] Extremities: No tenderness, no cyanosis, no clubbing, ROM intact, no edema. [] Neurologic: Alert and oriented X 3, normal motor function, normal sensory function, no focal deficits noted. [] Psychologic: Affect normal, judgement normal, mood normal. [] Current Patient Data Vital Signs Normal vital signs. Please refer to nursing documentations for specifics Course & Med Decision Making Course & Med Decision Making Pertinent Labs and Imaging studies reviewed. (See chart for details) Lonnie is advised to follow-up with his dentist for management of his dental pain Dragon Disclaimer Dragon Disclaimer This chart was dictated in whole or in part using Voice Recognition software in a busy, high-work load, and often noisy Emergency Department environment. It may contain unintended and wholly unrecognized errors or omissions. Departure Departure: Impression: Primary Impression: Pain, dental Disposition: HOME, SELF-CARE Condition: STABLE Referrals: PRABHAKAR JENKINS MD (PCP) Patient Instructions: Dental Pain Additional Instructions: Alfredo was seen in the emergency department for dental pain. No emergency medical condition was found on history or physical exam. He was strongly advised follow-up with his dentist as soon as possible for further management of his symptoms. AMERICO BOUDREAUX MD Jul 13, 2017 10:11
== END 2017-07-13 10:03 | disposition home or self-care (01) ==
LOC: ER 09:45
DX: K08.89 Other specified disorders of teeth and supporting structures (principal); G89.18 Other acute postprocedural pain; F17.210 Nicotine dependence, cigarettes, uncomplicated; G89.29 Other chronic pain; Z88.6 Allergy status to analgesic agent; Z88.1 Allergy status to other antibiotic agents
CPT/HCPCS: 99281

== ENCOUNTER 2017-08-03 08:41 | Emergency (ER) | payer OTHER ==
[~2017-08-03] VITALS: Ht 175.3 cm; Wt 59.0 kg
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
[2017-08-03 08:50] VITALS: BP 135/85
[2017-08-03] MEDS ORDERED: CYCL-331 PO (09:26)
--- NOTE | 2017-08-03 09:27 | RAD ---
Chest, 2 views, 08/03/2017: History: Left-sided rib pain, chest congestion The heart size and pulmonary vascularity are normal. No pulmonary infiltrates are seen. There is no evidence of pleural fluid. IMPRESSION: No acute cardiopulmonary abnormality is detected.
== END 2017-08-03 09:33 | disposition home or self-care (01) ==
LOC: ER 08:41
DX: R07.89 Other chest pain (principal); G89.29 Other chronic pain; F17.210 Nicotine dependence, cigarettes, uncomplicated; Z88.1 Allergy status to other antibiotic agents; Z88.6 Allergy status to analgesic agent
CPT/HCPCS: 71020; 99284